=== PATIENT | female | born 1980 | race Hispanic/Latino ===

== ENCOUNTER 2025-08-18 14:52 | Emergency (ER) | payer BC ==
[~2025-08-18] VITALS: Ht 165.1 cm; Wt 80.7 kg
[2025-08-18] MEDS: HYDROcodone/APAP 5/325 1 TAB TABLET PO ONE (16:00)
[2025-08-18 16:26] LABS: IMMATURE GRANULOCYTE ABSOLUTE 0.03 K/uL (0-1); NUCLEATED RED BLOOD CELLS 0.0 % (0.0-0.19); PLATELET COUNT (AUTO) 250 K/uL (130-400); RED BLOOD CELL COUNT(AUTO) 4.32 MIL/uL (4.00-5.50); RED CELL DISTRIBUTION WIDTH 12.5 % (11.0-15.5); WHITE BLOOD COUNT (AUTO) 7.3 K/uL (4.8-10.8)
[2025-08-18 16:37] LABS: CREATININE 0.8 mg/dL (0.5-1.0); GLOMERULAR FILTR. RATE CALC 93.0 mL/min (>90); GLUCOSE,RANDOM 91.0 mg/dL (70-105); SODIUM SERUM 140.0 mmol/L (136-145); UREA NITROGEN, BLOOD 11.0 mg/dL (7-18)
--- NOTE | 2025-08-18 16:39 | HMCIMG ---
USG SOFT TISSUE PERINEUM Clinical Details: History of post???mass removal (4 months ago) with right buttock swelling. Clinical suspicion of right gluteal abscess or cyst. Technique: Real-time ultrasound examination of the right buttock region was performed with image documentation. Findings: Right Buttock Region: A postsurgical scar is noted in the right buttock region. A small fluid collection measuring approximately 3.8 ??? 1.1 ??? 1.1 cm is present at the scar site, demonstrating internal vascularity. No solid enhancing mass or calcification is identified within the lesion. The surrounding soft tissue planes are preserved without signs of invasion or edema. No additional acute findings are noted. Impression: * Small postoperative fluid collection with mild internal vascularity at the right buttock scar site, likely representing a small seroma. * No solid mass or abscess is evident. * Clinical and sonographic follow-up is advised to monitor for resolution or development of secondary infection. /[place]
[2025-08-18] MEDS ORDERED: IOHEXOL-350 75 ML VIAL IV ONE (18:10)
--- NOTE | 2025-08-18 19:05 | NUR ---
ASSUMED CARE AT THIS TIME
--- NOTE | 2025-08-18 20:14 | HMCIMG ---
EXAM: CT Abdomen and Pelvis with IV contrast CLINICAL HISTORY: Rule out right gluteal abscess. TECHNIQUE: Axial computed tomography images of the abdomen and pelvis with intravenous contrast. CONTRAST: Administered intravenously. COMPARISON: None provided. FINDINGS: LUNG BASES: The lung bases are clear. No pleural effusions. LIVER: The liver is unremarkable. GALLBLADDER AND BILE DUCTS: The gallbladder is surgically absent. No biliary ductal dilatation. PANCREAS: The pancreas is unremarkable. SPLEEN: The spleen is unremarkable. ADRENAL GLANDS: The adrenal glands are unremarkable. KIDNEYS, URETERS, AND BLADDER: The kidneys are normal in size and configuration without hydronephrosis, hydroureter, or urinary calculi. The urinary bladder is unremarkable. STOMACH AND BOWEL: Hiatal hernia. No bowel obstruction, enteritis, or colitis. APPENDIX: No CT evidence of acute appendicitis. PERITONEUM: No free fluid or free air. LYMPH NODES: No lymphadenopathy. REPRODUCTIVE: The uterus is surgically absent. Postsurgical scarring is present along the vaginal vault. A right adnexal oblong cystic lesion measuring 2.4 x 6.1 x 2.4 cm is concerning for a right hydrosalpinx versus right ovarian cyst. A left ovarian cyst measures 2.3 x 2.7 x 2.5 cm. SOFT TISSUES: There are bilateral breast implants, incompletely imaged. A 2.1 x 1.5 x 4.5 cm hypodense collection is present within the deep soft tissue of the right gluteal region and right gluteus fletcher musculature with adjacent subcutaneous fat stranding, concerning for a seroma or abscess. A well-defined linear hyperdense fibular lesion measuring 3.6 x 1.3 x 1.7 cm along the medial aspect of the right gluteus fletcher muscle extends into the deep soft tissue, concerning for an old healed organized collection. VASCULATURE: No evidence of abdominal aortic aneurysm. Vascular calcifications. BONES: No aggressive or acute osseous pathology. IMPRESSION: Possible small seroma or abscess in the right gluteus muscles. [place] cystic lesion seen in the right adnexa may represent hydrosalpinx versus ovarian cyst. /[place]
--- NOTE | 2025-08-18 20:19 | ERN ---
ED Note History of Present Illness Stated Complaint: RT LEG PAIN Chief Complaint: Lower Extremity Pain/Injury Time Seen by MD: 14:59 Time Seen by Midlevel: 15:02 Dictation: 44-year-old female complaining of pain to the right groin radiating down to her leg. Patient states about four months ago she had a mass removed from her glute area in his current starting that she developed another mass or abscess. Denies having any recent fever, nausea and vomiting or diarrhea. Denies any numbness, tingling or incontinence. Allergies: Coded Allergies: ibuproxam (Unverified Allergy, Unknown, 08/18/25) pregabalin (Unverified Allergy, Unknown, 08/18/25) Home Meds Active Scripts Methocarbamol (Methocarbamol) 1,000 Mg Tablet, 1000 MG PO TID PRN for MUSCLE SPASMS for 7 Days, #21 TAB Prov:ILDEFONSO MORENO G[employer] SYSTEM OPERATOR 08/18/25 Lidocaine (Lidocaine) 4 % Adh..patch, 1 PATCH TP DAILY for 10 Days, #10 PATCH 0 Refills Prov:ILDEFONSO MORENO G[employer] SYSTEM OPERATOR 08/18/25 Past Medical History Past Medical History: No Pertinent History, GI Bleed Surgical History: Hysterectomy, Cholecystectomy Surgical History Other: RT THIGH MASS, COSMETIC Review of System Dictation Constitutional: Negative for fever,chills, and weight loss Eyes: Negative for injury, pain,redness, and discharge ENT: Negative for injury,pain or swelling Cardiovascular: Negative for chest pain, palpitations, and edema Respiratory: Negative for shortness of breath, cough, and wheezing, Abdomen/GI: Negative for abdominal pain, nausea, vomiting, diarrhea, and constipation Back: Negative for injury and pain : Negative for injury, bleeding and discharge MS/Extremity: Negative for injury and deformity, right glute pain radiating to the right leg Skin: Negative for rash, and discoloration Neuro: Negative for headache, weakness, numbness, tingling, and seizure Psych: Negative for suicide ideation, homicidal ideation, and hallucinations Review of Systems: was completed Initial Vital Sign VS Vital Signs Date Time Temp Pulse Resp B/P (MAP) Pulse Ox O2 Delivery O2 Flow Rate FiO2 08/18/25 14:55 98.6 87 16 166/137 99 Room Air 0 08/18/25 18:48 21 Physical Exam Dictation General: awake, alert, NAD Head/Face: Normocephalic, atraumatic Eyes: PERRL, EOMI, vision at baseline ENT: oral cavity clear, TMs clear, no signs of infection Neck: Trachea midline, supple, no nuchal rigidity Cardiovascular: RRR, normal S1/S2, No MRGs, no JVD Respiratory: CTAB, no respiratory distress, No rales or wheezes Abdomen: Soft, non-tender, non-distended, normal bowel sounds, no guarding or rebound. Skin: Warm, dry, normal turgor, no rash MS/Extremity: Pulses equal, no cyanosis, neurovascular intact, FROM, scar noted to the right glute, there is no palpable mass, no redness, no induration, no signs of any infectious process Neuro: COAx4, GCS 15, strength 5/5, CN 2-12 intact, normal cerebellar exam, normal gait, Psych: Normal behavior, mood, and affect normal Results (Laboratory/Radiology) Laboratory/Radiology Laboratory Tests Test 08/18/25 16:21 White Blood Count 7.3 K/uL (4.8-10.8) Red Blood Count 4.32 MIL/uL (4.00-5.50) Hemoglobin 13.4 g/dL (12.0-16.0) Hematocrit 41.6 % (36-48) Mean Corpuscular Volume 96.3 fL (79-99) Mean Corpuscular Hemoglobin 31.0 pg (27.0-33.0) Mean Corpuscular Hemoglobin Concent 32.2 g/dL (32.0-36.0) Red Cell Distribution Width 12.5 % (11.0-15.5) Platelet Count 250 K/uL (130-400) Mean Platelet Volume 9.7 fL (7.5-10.5) Immature Granulocyte % (Auto) 0.4 % (0-1) Neutrophils (%) (Auto) 69.8 % (40.0-77.0) Lymphocytes (%) (Auto) 22.4 % (21.0-51.0) Monocytes (%) (Auto) 5.8 % (3.0-13.0) Eosinophils (%) (Auto) 0.8 % (0.0-8.0) Basophils (%) (Auto) 0.8 % (0.0-5.0) Neutrophils # (Auto) 5.1 K/uL (1.8-7.7) Lymphocytes # (Auto) 1.6 K/uL (1.0-4.8) Monocytes # (Auto) 0.4 K/uL (0.1-1.0) Eosinophils # (Auto) 0.06 K/uL (0.00-0.70) Basophils # (Auto) 0.06 K/uL (0.00-0.20) Absolute Immature Granulocyte (auto 0.03 K/uL (0-1) Nucleated Red Blood Cells 0.0 % (0.0-0.19) Sodium Level 140 mmol/L (136-145) Potassium Level 4.1 mmol/L (3.5-5.1) Chloride Level 105 mmol/L (101-111) Carbon Dioxide Level 28 mmol/L (21-32) Blood Urea Nitrogen 11 mg/dL (7-18) Creatinine 0.8 mg/dL (0.5-1.0) Glomerular Filtration Rate Calc 93 mL/min (>90) Random Glucose 91 mg/dL (70-105) Total Calcium 8.5 mg/dL (8.5-10.1) Labs Reviewed?: Yes Ultrasound Comment: [address] [id number] IMAGING REPORT Signed PATIENT: RAJ JERNIGAN MR#: [id number] : 1980 SEX: F AGE: 44 LOCATION: [facility] ORDER [id number] STATUS: [facility] REPORT#: [id number] SERVICE 1533 REASON: right glute r/o abscess/cyst ORDERING PHYSICIAN: ILDEFONSO MORENO CNP PROCEDURE: SOFT PERIN - US SOFT TISSUE PERINEUM USG SOFT TISSUE PERINEUM Clinical Details: History of post???mass removal (4 months ago) with right buttock swelling. Clinical suspicion of right gluteal abscess or cyst. Technique: Real-time ultrasound examination of the right buttock region was performed with image documentation. Findings: Right Buttock Region: A postsurgical scar is noted in the right buttock region. A small fluid collection measuring approximately 3.8 ??? 1.1 ??? 1.1 cm is present at the scar site, demonstrating internal vascularity. No solid enhancing mass or calcification is identified within the lesion. The surrounding soft tissue planes are preserved without signs of invasion or edema. No additional acute findings are noted. Impression: * Small postoperative fluid collection with mild internal vascularity at the right buttock scar site, likely representing a small seroma. * No solid mass or abscess is evident. * Clinical and sonographic follow-up is advised to monitor for resolution or development of secondary infection. /[place] DICTATED BY: LORENZO CHAMORRO MD DATE: 08/18/251737 ELECTRONICALLY SIGNED BY: LORENZO CHAMORRO MD DATE: 08/18/251737 CT Scan Comment: [address] [id number] IMAGING REPORT Signed PATIENT: RAJ JERNIGAN MR#: [id number] : 1980 SEX: F AGE: 44 LOCATION: [facility] ORDER 08 STATUS: REG REPORT#: [id number] SERVICE 07 REASON: r/o right glute abcsess ORDERING PHYSICIAN: ILDEFONSO MORENO CNP PROCEDURE: ABD PEL W - CT ABDOMEN/PELVIS W/CONTRAST EXAM: CT Abdomen and Pelvis with IV contrast CLINICAL HISTORY: Rule out right gluteal abscess. TECHNIQUE: Axial computed tomography images of the abdomen and pelvis with intravenous contrast. CONTRAST: Administered intravenously. COMPARISON: None provided. FINDINGS: LUNG BASES: The lung bases are clear. No pleural effusions. LIVER: The liver is unremarkable. GALLBLADDER AND BILE DUCTS: The gallbladder is surgically absent. No biliary ductal dilatation. PANCREAS: The pancreas is unremarkable. SPLEEN: The spleen is unremarkable. ADRENAL GLANDS: The adrenal glands are unremarkable. KIDNEYS, URETERS, AND BLADDER: The kidneys are normal in size and configuration without hydronephrosis, hydroureter, or urinary calculi. The urinary bladder is unremarkable. STOMACH AND BOWEL: Hiatal hernia. No bowel obstruction, enteritis, or colitis. APPENDIX: No CT evidence of acute appendicitis. PERITONEUM: No free fluid or free air. LYMPH NODES: No lymphadenopathy. REPRODUCTIVE: The uterus is surgically absent. Postsurgical scarring is present along the vaginal vault. A right adnexal oblong cystic lesion measuring 2.4 x 6.1 x 2.4 cm is concerning for a right hydrosalpinx versus right ovarian cyst. A left ovarian cyst measures 2.3 x 2.7 x 2.5 cm. SOFT TISSUES: There are bilateral breast implants, incompletely imaged. A 2.1 x 1.5 x 4.5 cm hypodense collection is present within the deep soft tissue of the right gluteal region and right gluteus fletcher musculature with adjacent subcutaneous fat stranding, concerning for a seroma or abscess. A well-defined linear hyperdense fibular lesion measuring 3.6 x 1.3 x 1.7 cm along the medial aspect of the right gluteus fletcher muscle extends into the deep soft tissue, concerning for an old healed organized collection. VASCULATURE: No evidence of abdominal aortic aneurysm. Vascular calcifications. BONES: No aggressive or acute osseous pathology. IMPRESSION: Possible small seroma or abscess in the right gluteus muscles. [place] cystic lesion seen in the right adnexa may represent hydrosalpinx versus ovarian cyst. /[place] DICTATED BY: JACOBY BLACK MD DATE: 08/18/252112 ELECTRONICALLY SIGNED BY: JACOBY BLACK MD DATE: 08/18/252112 ED Course ED Course Orders Procedure Category Date Status Time Cbc With Differential LAB 08/18/25 Complete 15:33 Basic Metabolic Panel LAB 08/18/25 Complete 15:33 Us Soft Tissue US 08/18/25 Resulted Perineum 15:33 Hydrocodone/Apap PHA 08/18/25 Complete 5/325 ([place] P[place] 5/325mg) 16:00 Ct Abdomen/Pelvis CT 08/18/25 Resulted W/Contrast 17:08 Iohexol (Omnipaque) PHA 08/18/25 Complete 18:10 Ondansetron 4mg Inj PHA 08/18/25 Complete (Zofran 4mg Inj) 19:00 Morphine 4mg Syg PHA 08/18/25 Complete (Morphine 4mg Syg) 20:30 Ondansetron 4mg Inj PHA 08/18/25 Complete (Zofran 4mg Inj) 20:30 Current Medications Medications (Trade) Dose Ordered Sig/Elvira Route PRN Reason Start Time Stop Time Status Last Admin Dose Admin Acetaminophen/ Hydrocodone Bitart (NORco 5/325MG) 1 tab ONCE ONCE PO 08/18/25 16:00 08/18/25 16:01 DC 08/18/25 16:00 Iohexol (Omnipaque) 75 ml STK-MED ONCE IV 08/18/25 18:10 08/18/25 18:10 DC Morphine Sulfate (morPHINE 4MG SYG) 4 mg ONCE ONCE IVP 08/18/25 20:30 08/18/25 20:31 DC 08/18/25 20:32 Ondansetron HCl (zoFRAN 4MG INJ) 4 mg ONCE ONCE IVP 08/18/25 19:00 08/18/25 19:01 DC 08/18/25 19:06 Ondansetron HCl (zoFRAN 4MG INJ) 4 mg ONCE ONCE IVP 08/18/25 20:30 08/18/25 20:31 DC 08/18/25 20:32 Vital Signs Date Time Temp Pulse Resp B/P (MAP) Pulse Ox O2 Delivery O2 Flow Rate FiO2 08/18/25 20:58 98.1 78 20 124/67 97 Room Air* 0 21 08/18/25 20:26 98.1 82 20 128/70 97 Room Air* 0 21 08/18/25 18:48 98.1 75 20 122/74 97 Room Air* 0 21 08/18/25 14:55 98.6 87 16 166/137 99 Room Air 0 Medical Decision Making MDM MDM: 44-year-old female complaining of pain to the right groin radiating down to her leg. Patient states about four months ago she had a mass removed from her glute area in his current starting that she developed another mass or abscess. Denies having any recent fever, nausea and vomiting or diarrhea. Denies any numbness, tingling or incontinence. Blood work is unremarkable. No leukocytosis. Ultrasound is showing a seroma. CT of the pelvis is showing a seroma versus an abscess however patient is afebrile, no leukocytosis, no evidence of any infectious process more than likely this is a seroma. He will receive pain medication in the emergency room or follow up outpatient with Dr. Lau from [facility] her surgeon. Discussed on red flag symptoms of when to return back to the emergency room. Patient verbalized understanding, answered all questions. Differential diagnosis:, abscess, cellulitis, seroma Rationale: Tests considered and ordered secondary to shared decision making include: Previous outside records reviewed: Old ER visits. Risk of complication and/or morbidity or mortality of patient management: None Medications-Per medication reconciliation Need for hospitalization: Patient does not meet criteria for hospitalization. Need for emergency major/minor surgery: No There are no social concerns with this patient. Prescription drug management Prescriptions will include symptomatic care Patient's prior external medical records from other ER visits were reviewed by me as indicated. Prior testing and results from previous visits were reviewed. Prior tests were taken into account with medical decision making and resource utilization, independent historian/historians were used to obtain complete medical history. I independently interpreted the test that were performed, results were reviewed by me and considered findings on radiology if ordered. Medical management and examination interpretation discussions were had by me with other qualified healthcare professionals as indicated for the patient's care. DX & DISP Disposition: Discharge Departure Impression: Primary Impression: Seroma Additional Impression: Sciatic leg pain Condition: Stable Scripts Methocarbamol (Methocarbamol) 1,000 Mg Tablet 1000 MG PO TID PRN for MUSCLE SPASMS for 7 Days, #21 TAB Prov: ILDEFONSO MORENO CNP 08/18/25 Lidocaine (Lidocaine) 4 % Adh..patch 1 PATCH TP DAILY for 10 Days, #10 PATCH 0 Refills Prov: ILDEFONSO MORENO CNP 08/18/25 Referrals: ANSHUL ROY (PCP) Time of Disposition: 20:27 I have reviewed the case, and I agree with, Diagnosis and Plan I performed a substantive portion of the visit. I have reviewed and personally made and approve the management plan that is documented in the notes by myself with JOSE/resident. I acknowledged full responsibility for the patient's management plan. ILDEFONSO MORENO CNP Aug 18, 2025 20:19 FRANCIA TITUS DO Aug 19, 2025 00:54
[2025-08-18] MEDS ORDERED: METH100054 PO (20:28)
[2025-08-18] MEDS ORDERED: LIDO1ADH82 TP (20:28)
[2025-08-18 20:58] VITALS: BP 124/67; PULSE 78; RESP 20; TEMP 98.1; O2SAT 97
== END 2025-08-18 20:59 | disposition home or self-care (01) ==
LOC: EDH 14:52
DX: L76.34 Postprocedural seroma of skin and subcutaneous tissue following other procedure (principal); M54.31 Sciatica, right side; Z90.49 Acquired absence of other specified parts of digestive tract; Z90.710 Acquired absence of both cervix and uterus
CPT/HCPCS: 99285; 74177; 96374; 76857; 96375; 80048; 85025; 36415; 96376; J2405 ×2; J2270; Q9967